=== PATIENT | female | born 1970 | race Caucasian/White ===

== ENCOUNTER 2016-10-14 21:35 | Emergency (ER) | payer OTHER ==
--- NOTE | 2016-10-14 22:46 | RAD ---
EXAM: CERVICAL SPINE FOUR VIEWS 10/14/16 HISTORY: Trauma. Patient feel from the porch. COMPARISON: None. FINDINGS: On the open mouth projection, the tip of the odontoid process is obscured. The remainder of the odon toid process does not demonstrate fracture. Lateral masses of C1 and C2 articulate appropriately. On the AP projection, no malalignment or fracture. There is no prevertebral soft tissue swelling. On the lateral projection, and swimmer's projection, cervical spine is identified from the C1 vertebral body to the C7-T1 disc space. Vertebral body heig hts are maintained. No fracture. Mild degenerative disc disease at C5-C6 with loss of disc space hei ght and osteophyte formation. Straightening of the normal cervical lordosis likely due to patient position, muscle spasm or cervic al collar. IMPRESSION: No fracture. If there is still concern, CT can be performed. POS: MANJULA
[2016-10-14] MEDS ORDERED: Ketorolac Tromethamine 60 MG/2 ML VIAL ONE (23:00)
[2016-10-14] MEDS ORDERED: Clindamycin 150 MG CAP ONE (23:00)
== END 2016-10-14 23:19 | disposition home or self-care (01) ==
LOC: NAV ERS 21:35
DX: S43.422A Sprain of left rotator cuff capsule, initial encounter (principal); S16.1XXA Strain of muscle, fascia and tendon at neck level, initial encounter; S50.02XA Contusion of left elbow, initial encounter; K02.9 Dental caries, unspecified; I10 Essential (primary) hypertension; R60.0 Localized edema; F31.9 Bipolar disorder, unspecified; F17.210 Nicotine dependence, cigarettes, uncomplicated; W19.XXXA Unspecified fall, initial encounter
CPT/HCPCS: 72040; 96372; J1885

== ENCOUNTER 2016-10-17 05:43 | Emergency (ER) | payer OTHER ==
[2016-10-17] MEDS ORDERED: HYDROcodone/Acetaminophen 10/325 mg Tablet ONE (06:04)
[2016-10-17] MEDS ORDERED: predniSONE 20 MG TAB ONE (06:05)
== END 2016-10-17 06:15 | disposition home or self-care (01) ==
LOC: NAV ERS 05:43
DX: K02.9 Dental caries, unspecified (principal); K21.9 Gastro-esophageal reflux disease without esophagitis; F31.9 Bipolar disorder, unspecified; F17.210 Nicotine dependence, cigarettes, uncomplicated; Z79.899 Other long term (current) drug therapy
CPT/HCPCS: 99282; J7506

== ENCOUNTER 2016-12-03 03:39 | Emergency (ER) | payer OTHER ==
[2016-12-03] MEDS ORDERED: Ketorolac Tromethamine 60 MG/2 ML VIAL ONE (04:06)
[2016-12-03] MEDS ORDERED: Promethazine HCl 25 MG/ML VIAL ONE (04:06)
== END 2016-12-03 04:34 | disposition home or self-care (01) ==
LOC: NAV ERS 03:39
DX: R51 Headache (principal); R60.9 Edema, unspecified; F31.9 Bipolar disorder, unspecified; F17.210 Nicotine dependence, cigarettes, uncomplicated
CPT/HCPCS: 96372; J1885; J2550

== ENCOUNTER 2016-12-25 15:43 | Emergency (ER) | payer OTHER ==
[2016-12-25] MEDS ORDERED: Ketorolac Tromethamine 60 MG/2 ML VIAL ONE (16:14)
--- NOTE | 2016-12-25 16:44 | CT ---
CT CERVICAL SPINE 12/25/16 46-year-old with history of right shoulder pain, radiculopathy. Axial images are obtained with coron al and sagittal reconstructions. CT images demonstrate disc space height loss with anterior and posterior osteophytes of the C5-6 int ervertebral disc level. This may represent some disc degeneration at this level. Correlate with elec tive MRI. No other significant evidence of central spinal or neural foraminal narrowing is seen. IMPRESSION: C5-6 disc degenerative changes. POS: MANJULA
== END 2016-12-25 17:30 | disposition home or self-care (01) ==
LOC: NAV ERS 15:43
DX: M54.12 Radiculopathy, cervical region (principal); F20.9 Schizophrenia, unspecified; F31.9 Bipolar disorder, unspecified; F17.210 Nicotine dependence, cigarettes, uncomplicated; Z86.19 Personal history of other infectious and parasitic diseases
CPT/HCPCS: 72125; 96372; J1885

== ENCOUNTER 2017-02-28 01:25 | Emergency (ER) | payer OTHER ==
[2017-02-28] MEDS ORDERED: Ibuprofen 800 MG TAB ONE (01:58)
== END 2017-02-28 02:22 | disposition home or self-care (01) ==
LOC: NAV ERS 01:25
DX: R10.12 Left upper quadrant pain (principal); F31.9 Bipolar disorder, unspecified; F25.9 Schizoaffective disorder, unspecified; F17.210 Nicotine dependence, cigarettes, uncomplicated
CPT/HCPCS: 99283

== ENCOUNTER 2018-03-11 07:07 | Emergency (ER) | payer OTHER | END 2018-03-11 07:39 | disposition home or self-care (01) | LOC: NAV ERS 07:07 | DX: R60.0 Localized edema (principal); B19.20 Unspecified viral hepatitis C without hepatic coma; F31.9 Bipolar disorder, unspecified; F25.9 Schizoaffective disorder, unspecified; F17.210 Nicotine dependence, cigarettes, uncomplicated; Z79.899 Other long term (current) drug therapy | CPT/HCPCS: 99283 ==

== ENCOUNTER 2018-07-01 17:07 | Emergency (ER) | payer MEDICAID, OTHER | END 2018-07-01 18:12 | disposition home or self-care (01) | LOC: NAV ERS 17:07 | DX: J06.9 Acute upper respiratory infection, unspecified (principal); F17.210 Nicotine dependence, cigarettes, uncomplicated; F31.9 Bipolar disorder, unspecified; F25.9 Schizoaffective disorder, unspecified | CPT/HCPCS: 99281 ==